=== PATIENT | female | born 1985 | race American Indian/Alaskan Native ===

== ENCOUNTER 2018-10-13 18:56 | Emergency (ER) | payer BC, OTHER ==
--- NOTE | 2018-10-13 19:18 | Emergency Department Report ---
Blank Doc - Documentation Documentation: 33 y.o. female presents with right flank pain. Report lower abdominal pain last night which resolved. Pain is worse with deep breaths and movement. LMP 2018. History of abnormal menses. Pain is constant cc right flank pain Denies urinary frequency, urgency, or dysuria. Labs ordered Fast Track for evaluation
[2018-10-13 19:45] LABS: Basophils # (Auto) 0.1 K/mm3 (0.0-0.1); Basophils % (Auto) 1.1 % (0.0-1.8); Eosinophils # (Auto) 0.1 K/mm3 (0.0-0.4); Hematocrit 38.7 % (30.3-42.9); Hemoglobin 13.1 gm/dl (10.1-14.3); Lymphocytes # (Auto) 2.5 K/mm3 (1.2-5.4); Lymphocytes % (Auto) 29.8 % (13.4-35.0); Mean Corpuscular HGB Conc 34 % (30-34); Mean Corpuscular Volume 93 fl (79-97); Monocytes # (Auto) 0.8 K/mm3 (0.0-0.8); Monocytes % (Auto) 9.5 % (0.0-7.3); Platelet Count 309 K/mm3 (140-440); Red Blood Count 4.18 M/mm3 (3.65-5.03); Red Cell Distribution Width 13.5 % (13.2-15.2)
[2018-10-13 19:59] LABS: Alanine Aminotransferase 14 units/L (7-56); Albumin 4.1 g/dL (3.9-5); BUN/Creatinine Ratio 16; Blood Urea Nitrogen 13 mg/dL (7-17); Hemolysis Index 7
[2018-10-13 21:03] LABS: Bacteria,Urine 1+ /HPF (Negative); Bilirubin,Urine NEG (Negative); Blood,Urine NEG (Negative); Color,Urine Yellow (Yellow); HCG Qualitative,Urine Negative (Negative); Protein,Urine <15 mg/dL mg/dL (Negative); Urobilinogen,Urine < 2.0 mg/dL (<2.0)
--- NOTE | 2018-10-13 22:34 | Emergency Department Report ---
ED General Adult HPI - General Chief complaint: Abdominal Pain Stated complaint: RT SIDE PAIN Time Seen by Provider: 10/13/18 19:12 Source: patient Mode of arrival: Ambulatory Limitations: No Limitations - History of Present Illness Initial comments: 33-year-old female, doesn't emergency department complaining of a one-day history of right flank pain which started while she was sleeping. Pain was sharp in nature, worse with deep breaths and certain range of motion activities and palpation. She reports no dysuria, hematuria, hematemesis, hematochezia, constipation, diarrhea, fever, chills, sweats. She reports no chest pain, palpitations, or wheezing. She denies any previous issues with her back or chest -: days(s) (1) Radiation: non-radiation Severity scale (0 -10): 7 Quality: dull Consistency: constant Improves with: none Worsens with: none Associated Symptoms: denies other symptoms. denies: cough, diaphoresis, malaise, nausea/vomiting, syncope, weakness Treatments Prior to Arrival: none - Related Data Previous Rx's Medication Instructions Recorded Last Taken Type ALBUTEROL Inhaler (OR & NICU) 2 puff IH QID PRN #1 inh 12/06/15 Unknown Rx [Proair] Azithromycin [Zithromax Z-TISH] 250 mg PO DAILY #6 tablet 12/06/15 Unknown Rx Prednisone [predniSONE 10 mg 10 mg PO .TAPER #1 tab.ds.pk 12/06/15 Unknown Rx (6-Day Pack, 21 Tabs)] Amoxicillin [Trimox CAP] 1,000 mg PO QDAY #20 capsule 05/17/16 Unknown Rx Ketorolac [Toradol] 10 mg PO Q6H PRN #20 tablet 10/14/18 Unknown Rx Allergies Allergy/AdvReac Type Severity Reaction Status Date / Time No Known Allergies Allergy Verified 10/13/18 18:57 ED Review of Systems ROS: Stated complaint: RT SIDE PAIN Other details as noted in HPI Constitutional: denies: chills, fever Eyes: denies: eye pain, eye discharge, vision change ENT: denies: ear pain, throat pain Respiratory: denies: cough, shortness of breath, wheezing Cardiovascular: denies: chest pain, palpitations Endocrine: no symptoms reported Gastrointestinal: denies: abdominal pain, nausea, diarrhea Genitourinary: denies: urgency, dysuria, discharge Musculoskeletal: denies: back pain, joint swelling, arthralgia Skin: denies: rash, lesions Neurological: denies: headache, weakness, paresthesias Psychiatric: denies: anxiety, depression Hematological/Lymphatic: denies: easy bleeding, easy bruising ED Past Medical Hx - Past Medical History Hx Kidney Stones: Yes Hx Asthma: Yes (CHILD) - Surgical History Additional Surgical History: D & C - Social History Smoking Status: Current Every Day Smoker Substance Use Type: Alcohol - Medications Home Medications: Home Medications Medication Instructions Recorded Confirmed Last Taken Type ALBUTEROL Inhaler (OR & NICU) 2 puff IH QID PRN #1 inh 12/06/15 Unknown Rx [Proair] Azithromycin [Zithromax Z-TISH] 250 mg PO DAILY #6 tablet 12/06/15 Unknown Rx Prednisone [predniSONE 10 mg 10 mg PO .TAPER #1 tab.ds.pk 12/06/15 Unknown Rx (6-Day Pack, 21 Tabs)] Amoxicillin [Trimox CAP] 1,000 mg PO QDAY #20 capsule 05/17/16 Unknown Rx Ketorolac [Toradol] 10 mg PO Q6H PRN #20 tablet 10/14/18 Unknown Rx ED Physical Exam - General Limitations: No Limitations General appearance: alert, in no apparent distress - Head Head exam: Present: atraumatic, normocephalic - Eye Eye exam: Present: normal appearance, PERRL, EOMI Pupils: Present: normal accommodation - ENT ENT exam: Present: normal exam, mucous membranes moist - Neck Neck exam: Present: normal inspection, full ROM - Respiratory Respiratory exam: Present: normal lung sounds bilaterally. Absent: respiratory distress, wheezes, stridor, chest wall tenderness, accessory muscle use - Cardiovascular Cardiovascular Exam: Present: regular rate, normal rhythm. Absent: tachycardia, systolic murmur, diastolic murmur, rubs, gallop - GI/Abdominal GI/Abdominal exam: Present: soft, normal bowel sounds - Extremities Exam Extremities exam: Present: normal inspection - Back Exam Back exam: Present: normal inspection - Neurological Exam Neurological exam: Present: alert, oriented X3 - Psychiatric Psychiatric exam: Present: normal affect, normal mood - Skin Skin exam: Present: warm, dry, intact, normal color. Absent: rash ED Course Vital Signs 10/13/18 10/13/18 18:59 22:47 Temperature 98.5 F 98.2 F Pulse Rate 77 62 Respiratory 20 16 Rate Blood Pressure 140/86 112/74 [Left] O2 Sat by Pulse 98 100 Oximetry ED Medical Decision Making - Lab Data Result diagrams: 10/13/18 19:26 10/13/18 19:26 Critical care attestation.: If time is entered above; I have spent that time in minutes in the direct care of this critically ill patient, excluding procedure time. ED Disposition Clinical Impression: Musculoskeletal pain Disposition: DC- TO HOME OR SELFCARE Is pt being admited?: No Does the pt Need Aspirin: No Condition: Stable Instructions: Abdominal Pain (ED), Musculoskeletal Pain (ED) Prescriptions: Ketorolac [Toradol] 10 mg PO Q6H PRN #20 tablet PRN Reason: Pain Referrals: CRALOTTA ASH DO [Primary Care Provider] - 3-5 Days
[2018-10-13 22:49] VITALS: BP 112/74
--- NOTE | 2018-10-13 23:23 | XRay Report ---
FINAL REPORT EXAM: XR CHEST ROUTINE 2V HISTORY: pain to right flank TECHNIQUE: 2 views of the chest. PRIORS: None. FINDINGS: The cardiomediastinal silhouette appears normal. The lungs are clear. The bones and soft tissues are unremarkable. IMPRESSION: No evidence of acute cardiopulmonary disease
== END 2018-10-14 00:30 | disposition home or self-care (01) ==
LOC: ED 18:56
DX: M79.18 Myalgia, other site (principal); J45.909 Unspecified asthma, uncomplicated; F17.200 Nicotine dependence, unspecified, uncomplicated
CPT/HCPCS: 36415; 71046; 80053; 81001; 81025; 85025

== ENCOUNTER 2022-05-11 17:43 | Emergency (ER) | payer BC, OTHER ==
[2022-05-11] MEDS ORDERED: TETRACAINE 0.5% OPHTH SOLN 4ML OU ONE (23:23)
[2022-05-11] MEDS ORDERED: FLUORESCEIN 1 MG STRIP OP ONE (23:23)
--- NOTE | 2022-05-12 00:10 | Emergency Department Report ---
ED General Adult HPI - General Chief complaint: Eye Problems Stated complaint: RIGHT EYE PAIN Time Seen by Provider: 05/11/22 23:09 Source: patient Mode of arrival: Ambulatory Limitations: No Limitations - History of Present Illness Initial comments: 37-year-old female no significant past medical history reports to the ER with complaints of left eye pain since Wednesday. Patient also reports pain with irritation upon waking today. Patient reports she has been sleeping in her contacts on and off for the past 2 months. Patient reports her last new con tacts were about 2 months ago when she seen her eye provider. Patient also reports that these contacts are only supposed to last about 30 days but she has been using the same contacts for 2 months. Patient reports irritation pain and a foreign body sensation. Patient denies any injury to her left eye. No other acute symptoms reported. - Related Data Previous Rx's Medication Instructions Recorded Last Taken Type Albuterol Mdi (or & Nicu Only) 2 puff IH QID PRN #1 inh 12/06/15 Unknown Rx [Proair] Azithromycin [Zithromax Z-TISH] 250 mg PO DAILY #6 tablet 12/06/15 Unknown Rx Prednisone [predniSONE 10 mg 10 mg PO .TAPER #1 tab.ds.pk 12/06/15 Unknown Rx (6-Day Pack, 21 Tabs)] Amoxicillin [Trimox CAP] 1,000 mg PO QDAY #20 capsule 05/17/16 Unknown Rx Ketorolac [Toradol] 10 mg PO Q6H PRN #20 tablet 10/14/18 Unknown Rx Erythromycin [Erythromycin Ophth 1 applic OS ONCE 7 Days #1 tube 05/12/22 Unknown Rx Oint] Allergies Allergy/AdvReac Type Severity Reaction Status Date / Time No Known Allergies Allergy Verified 05/11/22 18:27 ED Review of Systems ROS: Stated complaint: RIGHT EYE PAIN Other details as noted in HPI Comment: All other systems reviewed and negative Eyes: eye pain, vision change ED Past Medical Hx - Past Medical History Previous Medical History?: Yes Hx Kidney Stones: Yes Hx Asthma: Yes (CHILD) - Surgical History Additional Surgical History: D & C - Social History Smoking Status: Current Every Day Smoker Substance Use Type: Alcohol - Medications Home Medications: Home Medications Medication Instructions Recorded Confirmed Last Taken Type Albuterol Mdi (or & Nicu Only) 2 puff IH QID PRN #1 inh 12/06/15 Unknown Rx [Proair] Azithromycin [Zithromax Z-TISH] 250 mg PO DAILY #6 tablet 12/06/15 Unknown Rx Prednisone [predniSONE 10 mg 10 mg PO .TAPER #1 tab.ds.pk 12/06/15 Unknown Rx (6-Day Pack, 21 Tabs)] Amoxicillin [Trimox CAP] 1,000 mg PO QDAY #20 capsule 05/17/16 Unknown Rx Ketorolac [Toradol] 10 mg PO Q6H PRN #20 tablet 10/14/18 Unknown Rx Erythromycin [Erythromycin Ophth 1 applic OS ONCE 7 Days #1 tube 05/12/22 Unknown Rx Oint] ED Physical Exam - General Limitations: No Limitations General appearance: alert, in no apparent distress - Head Head exam: Present: atraumatic, normocephalic - Eye Eye exam: Present: normal appearance, PERRL, conjunctival injection (Left), other (Positive for fluorescein uptake in left eyecorneal abrasion present.). Absent: periorbital swelling, periorbital tenderness Pupils: Present: normal accommodation, other (Patient unable to complete eye acuity exam due to light sensitivity. And pain) - Expanded Eye Exam Expanded Pupils: Regular, Round: Bilateral, Reactive: Bilateral Sclera/Conjunctival: Normal Inspection: Right, Injection: Left - ENT ENT exam: Present: mucous membranes moist - Neck Neck exam: Present: normal inspection - Respiratory Respiratory exam: Present: normal lung sounds bilaterally. Absent: respiratory distress - Cardiovascular Cardiovascular Exam: Present: regular rate, normal rhythm. Absent: systolic murmur, diastolic murmur, rubs, gallop - GI/Abdominal GI/Abdominal exam: Present: soft, normal bowel sounds - Extremities Exam Extremities exam: Present: normal inspection - Back Exam Back exam: Present: normal inspection - Neurological Exam Neurological exam: Present: alert, oriented X3 - Psychiatric Psychiatric exam: Present: normal affect, normal mood - Skin Skin exam: Present: warm, dry, intact, normal color. Absent: rash ED Course Vital Signs 05/11/22 05/12/22 18:23 00:46 Temperature 98 F Pulse Rate 74 76 Respiratory 18 12 Rate Blood Pressure 121/76 127/79 [Left] O2 Sat by Pulse 100 100 Oximetry ED Medical Decision Making - Medical Decision Making 37-year-old female reports to ER with left eye pain with sensitivity to light and foreign body sensation. No direct injury reported. No foreign body noted. Patient unable to complete eye acuity due to pain and left eye as well as nabeel ent is currently not wearing her contacts. Mackey lamp exam reveals positive uptake in fluorescein stain with positive corneal abrasion to the left eye. No other acute findings noted on eye exam. 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 Patient informed to start wearing contact lenses while sleeping as well as to change her contact lenses as recommended by the chronometer assembler and adjuster as well as her parachute supervisor. Patient agrees with plan of care and verbalized understanding. No further work-up is needed at this time. Vital Signs 05/11/22 18:23 Temperature 98 F Pulse Rate 74 Respiratory 18 Rate Blood Pressure 121/76 [Left] O2 Sat by Pulse 100 Oximetry Vital Signs 05/11/22 05/12/22 18:23 00:46 Temperature 98 F Pulse Rate 74 76 Respiratory 18 12 Rate Blood Pressure 121/76 127/79 [Left] O2 Sat by Pulse 100 100 Oximetry Critical care attestation.: If time is entered above; I have spent that time in minutes in the direct care of this critically ill patient, excluding procedure time. ED Disposition Clinical Impression: Corneal abrasion due to contact lens Qualifiers: Laterality: left Qualified Code(s): H18.822 - Corneal disorder due to contact lens, left eye Disposition: 01 HOME / SELF CARE / HOMELESS Is pt being admited?: No Condition: Stable Instructions: Corneal Abrasion Prescriptions: Erythromycin [Erythromycin Ophth Oint] 1 applic OS ONCE 7 Days #1 tube Referrals: MILLIE SCHRADER MD [Primary Care Provider] - 3-5 Days Forms: Work/School Release Form(ED)
[2022-05-12 00:51] VITALS: BP 127/79
[2022-05-12] MEDS ORDERED: ERYTHROMYCIN 5 MG/1 GM OPHTH OINT OS ONE (01:12)
== END 2022-05-12 00:55 | disposition home or self-care (01) ==
LOC: ED 17:43
DX: H18.822 Corneal disorder due to contact lens, left eye (principal); N20.0 Calculus of kidney; J45.909 Unspecified asthma, uncomplicated; F17.200 Nicotine dependence, unspecified, uncomplicated
CPT/HCPCS: 99283